=== PATIENT | male | born 1985 | race Two or more races ===

== ENCOUNTER 2021-12-30 03:49 | Emergency (ER) | payer OTHER ==
[~2021-12-30] VITALS: Ht 172.7 cm; Wt 93.0 kg
[2021-12-30 05:11] VITALS: BP 139/77
== END 2021-12-30 06:09 | disposition left against medical advice (07) ==
LOC: ER 03:49
DX: R07.89 Other chest pain (principal)
CPT/HCPCS: 71045; 93005